=== PATIENT | female | born 1935 | race Caucasian/White ===

== ENCOUNTER → 2016-07-11 | Outpatient (CLI) | payer MEDICARE, OTHER ==
[~2016-07-11] MED LIST: ALLEGRA ALLERG180 MG PO; ALLEGRA180 MG PO; ASPIRIN EC325 MG PO; ATROVENT 0.03%30 ML BOTH NARES; Ascorbic Acid,Ester- PO; BENADRYL25 MG PO; BONIVA150 MG PO; BONIVA2.5 MG PO; CALCIUM 600 +1 EA15 PO; CALCIUM 600 +1 EAC1 PO; CALCIUM 600 +1 EACH PO; CATAPRES0.1 MG PO; CENTRUM SILV1 TABLE1 PO; CENTRUM SILVER1 EAC3 PO; COLACE100 MG PO; COUMADIN,JANTOVE1 MG PO; CRANBERRY300 MG PO; CYMBALTA20 MG PO; Claritin,Alavart PO; Colace PO; Coumadin dosing per PO; Cymbalta PO; DENAVIR1.5 GM PO; DENAVIR1.5 GM TP; Dulcolax PO; EFFEXOR XR150 MG PO; ESTROVEN 155 M155 MG PO; ESTROVEN MAX200 MCG PO; FENTANYL; FENTANYL1 EAC1 TD; FEVERFEW PO; Feosol PO; IBUPROFEN800 MG PO; IPRATROPIUM BRO15 ML NS; IRON325 M1 PO; Ipratropium Bromide NS; KENALOG,ARISTOC80 GM TP; Kenalog,Aristocort 0 TP; LYRICA150 MG PO; Levothroid,Synthroid PO; MOTRIN800 MG PO; MYCOSTATIN5 ML PO; NAPHAZOLINE; NEXIUM40 MG PO; NORCO 5/3251 TABLET PO; OPCON-A EYE DRO15 ML BOTH EYES; OXYCODONE HCL5 M1 PO; OXYIR5 MG PO; OXYTROL TRANSD3.9 MG TD; Oyst-Cal D, Oscal W/ PO; PHENIRAMINE; SENOKOT S,PE1 TABLET PO; SYNTHROID112 MCG PO; SYNTHROID125 MCG PO; SYNTHROID137 MCG PO; Synthroid PO; TETRACAINE; TETRACAINE IJ; TETRACAINE MC; THERAGRAN1 TABLET PO; TOFRANIL25 MG PO; TOFRANIL50 MG PO; TYLENOL REGULA325 MG PO; Tylenol Regular Stre PO; VITAMIN B 6 PO; Vicodin,Lortab 5/500 PO; ZOCOR40 MG PO; Zocor PO; [UNRECOGNIZED DRUG - OTHER]; [UNRECOGNIZED DRUG - OTHER] PO; fentaNYL Citrate IV; oxyCODONE PO
== END | disposition home or self-care (01) ==
LOC: CDC 15:43
DX: Z01.810 Encounter for preprocedural cardiovascular examination (principal)
CPT/HCPCS: 93000

== ENCOUNTER 2016-09-01 14:40 | Emergency (ER) | payer OTHER ==
[~2016-09-01] VITALS: Ht 152.4 cm; Wt 65.5 kg
[2016-09-01 16:02] LABS: EOSINOPHIL (%) 0.8 % (0-5); EOSINOPHIL COUNT 0.1 K/uL (0-0.3); HEMATOCRIT 31.6 % (36.0-46.0); IMMATURE GRANULOCYTE (%) 0.2 % (0.0-0.7); IMMATURE GRANULOCYTE COUNT 0.1 K/uL; LYMPHOCYTE COUNT 1.5 K/uL (1.0-2.8); MCH 31.4 PG (29.0-34.0); MCHC 33.2 G/DL (30.0-36.0); MCV 94.6 FL (83-99); MEAN PLAT.VOLUME 10.4 uM^3 (9.5-12.4); MONOCYTE (%) 11.8 % (3-12); MONOCYTE COUNT 0.8 K/uL (0-0.8); NEUTROPHIL (%) 63.7 % (45-76); PLATELET COUNT 208 K/uL (156-360); RBC DIS.WIDTH-CV 14.3 % (11.8-14.6); RBC DIS.WIDTH-SD 46.9 % (39-53); WHITE BLOOD COUNT 6.3 K/uL (4.1-10.2)
[2016-09-01 16:03] LABS: RED BLOOD COUNT 3.34 M/uL (3.80-5.20)
[2016-09-01 16:10] LABS: CHLORIDE 105 mEq/L (99-109); POTASSIUM 4.4 mEq/L (3.7-5.4); SODIUM 140 mEq/L (136-147)
[2016-09-01 16:12] LABS: GLUCOSE 103 mg/dL (70-99)
[2016-09-01 16:13] LABS: ANION GAP 7 MEQ/L (2-14)
[2016-09-01 16:14] LABS: TOTAL BILIRUBIN 0.4 mg/dL (0.0-1.0)
[2016-09-01 16:15] LABS: ALKALINE PHOSPHATASE 52 IU/L (3-129)
[2016-09-01 16:16] LABS: GFR ESTIMATE (CALCULATED) > 59 mL/min/
[2016-09-01 16:17] LABS: UREA NITROGEN (BUN) 18 mg/dL (9-23)
[2016-09-01 17:22] LABS: ADD MIUA? YES; BILIRUBIN NEGATIVE; BLOOD SMALL; COLOR AMBER ((YELLOW)); GLUCOSE (STRIP) NEGATIVE; KETONES 5; LEUKOCYTES TRACE; NITRITE NEGATIVE; PROTEIN (STRIP) NEGATIVE; SPECIFIC GRAVITY 1.017 (1.000-1.030)
[2016-09-01 17:34] LABS: BACTERIA RARE /HPF; CALCIUM OXALATE CRYSTALS 1+ /HPF; EPITHELIAL CELLS 1+ /HPF; HYALINE CASTS 30-40 /LPF; MUCUS 1+ /LPF; RED BLOOD CELLS TNTC /HPF (0-5); UNCLASSIFIED CRYSTALS 1+ /HPF
[2016-09-01 18:04] VITALS: BP 102/52
== END 2016-09-01 18:06 | disposition short-term general hospital (02) ==
LOC: EME 14:40
PROVIDERS: Emergency Medicine
DX: S72.001A Fracture of unspecified part of neck of right femur, initial encounter for closed fracture (principal); W18.30XA Fall on same level, unspecified, initial encounter; I10 Essential (primary) hypertension; K21.9 Gastro-esophageal reflux disease without esophagitis; M81.0 Age-related osteoporosis without current pathological fracture; Z87.891 Personal history of nicotine dependence
CPT/HCPCS: 73502; 73552; 80053; 81003; 85025; 86850; 86900; 86901; 99281; 99285; J2270; J2405

== ENCOUNTER 2016-11-16 18:39 | Inpatient (IN) | payer OTHER ==
[~2016-11-16] VITALS: Ht 152.4 cm; Wt 66.0 kg
[2016-11-16 20:15] LABS: EOSINOPHIL (%) 0.4 % (0-5); HEMATOCRIT 39.6 % (36.0-46.0); IMMATURE GRANULOCYTE (%) 0.5 % (0.0-0.7); INSTRUMENT ABS NEUTROPHIL CT 6.3 K/uL; LYMPHOCYTE COUNT 1.2 K/uL (1.0-2.8); MCH 31.1 PG (29.0-34.0); MCHC 32.3 G/DL (30.0-36.0); MCV 96.4 FL (83-99); MEAN PLAT.VOLUME 10.6 uM^3 (9.5-12.4); MONOCYTE (%) 8.8 % (3-12); MONOCYTE COUNT 0.7 K/uL (0-0.8); NEUTROPHIL (%) 76.1 % (45-76); NEUTROPHIL COUNT 6.3 K/uL (1.8-6.4); PLATELET COUNT 275 K/uL (156-360); RBC DIS.WIDTH-CV 13.2 % (11.8-14.6); RBC DIS.WIDTH-SD 47.1 % (39-53); RED BLOOD COUNT 4.11 M/uL (3.80-5.20); WHITE BLOOD COUNT 8.3 K/uL (4.1-10.2)
[2016-11-16 20:30] LABS: CHLORIDE 103 mEq/L (99-109); POTASSIUM 4.3 mEq/L (3.7-5.4); SODIUM 136 mEq/L (136-147)
[2016-11-16 20:32] LABS: GLUCOSE 112 mg/dL (70-99)
[2016-11-16 20:33] LABS: ANION GAP 7 MEQ/L (2-14)
[2016-11-16 20:34] LABS: TOTAL BILIRUBIN 0.2 mg/dL (0.0-1.0)
[2016-11-16 20:35] LABS: ALKALINE PHOSPHATASE 67 IU/L (3-129)
[2016-11-16 20:36] LABS: GFR ESTIMATE (CALCULATED) > 59 mL/min/
[2016-11-16 20:37] LABS: UREA NITROGEN (BUN) 20 mg/dL (9-23)
[2016-11-16 21:42] LABS: ADD MIUA? YES; BILIRUBIN NEGATIVE; BLOOD NEGATIVE; COLOR YELLOW ((YELLOW)); GLUCOSE (STRIP) NEGATIVE; KETONES NEGATIVE; LEUKOCYTES TRACE; NITRITE NEGATIVE; PROTEIN (STRIP) NEGATIVE; SPECIFIC GRAVITY 1.018 (1.000-1.030); UROBILINOGEN 0.2 MG/DL (0.2-1.0)
[2016-11-16 22:08] LABS: BACTERIA NONE SEEN /HPF; CALCIUM OXALATE CRYSTALS 1+ /HPF; EPITHELIAL CELLS RARE /HPF; MUCUS TRACE /LPF; RED BLOOD CELLS 0-5 /HPF (0-5); UCUL ADDED? NO
[2016-11-16] MEDS ORDERED: TRAMADOL HCL50 MG PO (23:29)
[2016-11-16] MEDS ORDERED: IBUPROFEN800 MG PO (23:29)
[2016-11-17 00:33] VITALS: BP 161/80
[2016-11-17 03:41] VITALS: BP 155/76
[2016-11-17 07:00] LABS: HEMATOCRIT 35.9 % (36.0-46.0); MCHC 31.5 G/DL (30.0-36.0); MCV 98.4 FL (83-99); MEAN PLAT.VOLUME 10.9 uM^3 (9.5-12.4); PLATELET COUNT 241 K/uL (156-360); RBC DIS.WIDTH-CV 13.2 % (11.8-14.6); RBC DIS.WIDTH-SD 47.6 % (39-53); RED BLOOD COUNT 3.65 M/uL (3.80-5.20); WHITE BLOOD COUNT 6.7 K/uL (4.1-10.2)
[2016-11-17 07:24] LABS: ANION GAP 7 MEQ/L (2-14); CHLORIDE 110 MEQ/L (99-109); GFR ESTIMATE (CALCULATED) > 59 mL/min/; GLUCOSE 106 mg/dL (70-99); POTASSIUM 3.8 MEQ/L (3.7-5.4); SAMPLE HEMOLYSIS CHECK 0; SAMPLE ICTERIC CHECK 0; SAMPLE LIPEMIA CHECK 0; SODIUM 142 MEQ/L (136-147); UREA NITROGEN (BUN) 15 mg/dL (9-23)
[2016-11-17 07:43] VITALS: BP 120/57
[2016-11-17 11:53] VITALS: BP 110/62
[2016-11-17 16:00] VITALS: BP 116/55
[2016-11-17 20:19] VITALS: BP 115/56
[2016-11-18 00:17] VITALS: BP 108/53
[2016-11-18 04:26] VITALS: BP 140/63
[2016-11-18 04:49] LABS: HEMATOCRIT 34.8 % (36.0-46.0); MCHC 31.6 G/DL (30.0-36.0); MEAN PLAT.VOLUME 10.9 uM^3 (9.5-12.4); PLATELET COUNT 229 K/uL (156-360); RBC DIS.WIDTH-CV 13.2 % (11.8-14.6); RBC DIS.WIDTH-SD 47.7 % (39-53); RED BLOOD COUNT 3.55 M/uL (3.80-5.20); WHITE BLOOD COUNT 5.3 K/uL (4.1-10.2)
[2016-11-18 07:50] VITALS: BP 125/58
[2016-11-18 16:01] VITALS: BP 131/62
[2016-11-18 23:14] VITALS: BP 126/60
[2016-11-19 07:10] VITALS: BP 168/72
[2016-11-19] MEDS ORDERED: CALCIUM 600 +1 EA16 PO (11:48)
[2016-11-19] MEDS ORDERED: FLONASE16 G1 BOTH NARES (11:50)
[2016-11-19] MEDS ORDERED: CRANBERRY 12,61 EACH PO (11:55)
[2016-11-19 15:39] VITALS: BP 117/58
[2016-11-19 21:32] VITALS: BP 169/74
[2016-11-19 22:49] LABS: GFR ESTIMATE (CALCULATED) > 59 mL/min/
[2016-11-19 23:52] LABS: VANCOMYCIN, TROUGH 7.6 MCG/ML (10-20)
[2016-11-20 00:52] VITALS: BP 126/60
[2016-11-20 08:01] VITALS: BP 158/71
[2016-11-20] MEDS ORDERED: BACTRIM,SEPT1 TABLET PO (08:25)
[2016-11-20] MEDS ORDERED: AUGMENTIN875 MG PO (08:25)
== END 2016-11-20 13:46 | disposition home health service (06) | DRG 602 ==
LOC: EME 18:39 → EDOF 23:33 → 2EAST 23:33
PROVIDERS: Internal Medicine; Physician Assistant
DX: L03.317 Cellulitis of buttock (principal); L89.314 Pressure ulcer of right buttock, stage 4; S70.321A Blister (nonthermal), right thigh, initial encounter; N31.9 Neuromuscular dysfunction of bladder, unspecified; G89.4 Chronic pain syndrome; G62.9 Polyneuropathy, unspecified; K86.1 Other chronic pancreatitis; M81.0 Age-related osteoporosis without current pathological fracture; B99.9 Unspecified infectious disease; E03.9 Hypothyroidism, unspecified; E78.5 Hyperlipidemia, unspecified; G89.29 Other chronic pain; I10 Essential (primary) hypertension; K59.00 Constipation, unspecified; Z87.891 Personal history of nicotine dependence; Z99.3 Dependence on wheelchair; Z98.1 Arthrodesis status
CPT/HCPCS: 72170; 72192; 80048; 80053; 80202; 81003; 82565; 83605; 84443; 85025; 85027; 87040; 87070; 87075; 87205; 97530 GP; 99281; 99285; J1644; J1885; J2543; J3370; J7030; J7050

== ENCOUNTER 2016-11-23 19:55 | Inpatient (IN) | payer OTHER ==
[~2016-11-23] VITALS: Ht 152.4 cm; Wt 66.5 kg
[~2016-11-23 19:55] MED LIST changes: +AUGMENTIN875 MG PO; +BACTRIM,SEPT1 TABLET PO; +CALCIUM 600 +1 EA16 PO; +CRANBERRY 12,61 EACH PO; +FLONASE16 G1 BOTH NARES; +TRAMADOL HCL50 MG PO
[2016-11-23 21:11] LABS: EOSINOPHIL (%) 0.1 % (0-5); HEMATOCRIT 38.3 % (36.0-46.0); IMMATURE GRANULOCYTE (%) 0.4 % (0.0-0.7); IMMATURE GRANULOCYTE COUNT 0.1 K/uL; INSTRUMENT ABS NEUTROPHIL CT 9.5 K/uL; LYMPHOCYTE COUNT 0.9 K/uL (1.0-2.8); MCHC 32.9 G/DL (30.0-36.0); MCV 94.1 FL (83-99); MONOCYTE (%) 7.7 % (3-12); MONOCYTE COUNT 0.9 K/uL (0-0.8); NEUTROPHIL (%) 83.6 % (45-76); NEUTROPHIL COUNT 9.5 K/uL (1.8-6.4); RBC DIS.WIDTH-CV 13.5 % (11.8-14.6); RBC DIS.WIDTH-SD 46.4 % (39-53); RED BLOOD COUNT 4.07 M/uL (3.80-5.20)
[2016-11-23 21:12] LABS: PLATELET COUNT 379 K/uL (156-360); WHITE BLOOD COUNT 11.3 K/uL (4.1-10.2)
[2016-11-23 21:21] LABS: ADD MIUA? YES; BILIRUBIN NEGATIVE; BLOOD NEGATIVE; COLOR YELLOW ((YELLOW)); GLUCOSE (STRIP) NEGATIVE; KETONES 5; LEUKOCYTES TRACE; NITRITE NEGATIVE; PROTEIN (STRIP) NEGATIVE; UROBILINOGEN 0.2 MG/DL (0.2-1.0)
[2016-11-23 21:23] LABS: CHLORIDE 104 mEq/L (99-109); POTASSIUM 4.4 mEq/L (3.7-5.4); SODIUM 136 mEq/L (136-147)
[2016-11-23 21:25] LABS: GLUCOSE 118 mg/dL (70-99)
[2016-11-23 21:26] LABS: ANION GAP 9 MEQ/L (2-14)
[2016-11-23 21:27] LABS: TOTAL BILIRUBIN 0.2 mg/dL (0.0-1.0)
[2016-11-23 21:29] LABS: ALKALINE PHOSPHATASE 67 IU/L (3-129); GFR ESTIMATE (CALCULATED) > 59 mL/min/
[2016-11-23 21:30] LABS: UREA NITROGEN (BUN) 18 mg/dL (9-23)
[2016-11-23 21:31] LABS: TROP-I INTERPRETATION NEGATIVE; TROPONIN-I < 0.01 ng/mL (0.0-0.30)
[2016-11-23 21:32] LABS: BACTERIA NONE SEEN /HPF; EPITHELIAL CELLS RARE /HPF; GRANULAR CASTS 0-5 /LPF; MUCUS TRACE /LPF; RED BLOOD CELLS 0-5 /HPF (0-5); UCUL ADDED? NO; WHITE BLOOD CELLS 0-5 /HPF (0-5)
[2016-11-23] MEDS ORDERED: AMOX TR-K CLV1 EAC4 PO (23:14)
[2016-11-23] MEDS ORDERED: BACTRIM,SEPT1 TABLET PO (23:15)
[2016-11-23] MEDS ORDERED: TOFRANIL25 MG PO (23:18)
[2016-11-23] MEDS ORDERED: SSD25GM TP (23:24)
[2016-11-24] VITALS (7 sets, daily range): BP systolic 100–154; BP diastolic 52–92
[2016-11-24 01:09] LABS: INFLUENZA A VIRAL ANTIGEN NEGATIVE; INFLUENZA B VIRAL ANTIGEN NEGATIVE
[2016-11-25 05:30] VITALS: BP 129/59
[2016-11-25 07:30] VITALS: BP 127/58
[2016-11-25 07:39] LABS: EOSINOPHIL (%) 1.9 % (0-5); EOSINOPHIL COUNT 0.1 K/uL (0-0.3); HEMATOCRIT 34.3 % (36.0-46.0); IMMATURE GRANULOCYTE (%) 0.5 % (0.0-0.7); INSTRUMENT ABS NEUTROPHIL CT 5.1 K/uL; LYMPHOCYTE COUNT 1.5 K/uL (1.0-2.8); MCH 31.1 PG (29.0-34.0); MCHC 32.4 G/DL (30.0-36.0); MCV 96.1 FL (83-99); MEAN PLAT.VOLUME 9.9 uM^3 (9.5-12.4); MONOCYTE (%) 9.5 % (3-12); MONOCYTE COUNT 0.7 K/uL (0-0.8); NEUTROPHIL (%) 68.1 % (45-76); NEUTROPHIL COUNT 5.1 K/uL (1.8-6.4); PLATELET COUNT 357 K/uL (156-360); RBC DIS.WIDTH-CV 13.3 % (11.8-14.6); RBC DIS.WIDTH-SD 47.8 % (39-53); RED BLOOD COUNT 3.57 M/uL (3.80-5.20)
[2016-11-25 07:46] LABS: WHITE BLOOD COUNT 7.6 K/uL (4.1-10.2)
[2016-11-25 08:11] LABS: ANION GAP 9 MEQ/L (2-14); CHLORIDE 105 MEQ/L (99-109); GFR ESTIMATE (CALCULATED) > 59 mL/min/; POTASSIUM 4.1 MEQ/L (3.7-5.4); SAMPLE HEMOLYSIS CHECK 0; SAMPLE ICTERIC CHECK 0; SAMPLE LIPEMIA CHECK 0; SODIUM 139 MEQ/L (136-147); UREA NITROGEN (BUN) 15 mg/dL (9-23)
[2016-11-25 08:38] LABS: GLUCOSE 86 mg/dL (70-99)
[2016-11-25 11:17] VITALS: BP 136/64
[2016-11-25 23:47] VITALS: BP 142/63
[2016-11-26 08:00] VITALS: BP 165/70
[2016-11-26 11:26] VITALS: BP 132/61
[2016-11-26 15:42] VITALS: BP 127/60
[2016-11-27] VITALS: BP 130/60
[2016-11-27 07:49] VITALS: BP 149/68
[2016-11-27 23:55] VITALS: BP 147/66
[2016-11-28 07:54] VITALS: BP 144/64
[2016-11-28 10:25] LABS: HEMATOCRIT 38.3 % (36.0-46.0); MCH 31.2 PG (29.0-34.0); MCHC 32.4 G/DL (30.0-36.0); MCV 96.5 FL (83-99); PLATELET COUNT 432 K/uL (156-360); RBC DIS.WIDTH-CV 13.3 % (11.8-14.6); RBC DIS.WIDTH-SD 47.6 % (39-53); RED BLOOD COUNT 3.97 M/uL (3.80-5.20); WHITE BLOOD COUNT 6.9 K/uL (4.1-10.2)
[2016-11-28 10:54] LABS: ANION GAP 12 MEQ/L (2-14); CHLORIDE 108 MEQ/L (99-109); GFR ESTIMATE (CALCULATED) > 59 mL/min/; GLUCOSE 144 mg/dL (70-99); POTASSIUM 3.6 MEQ/L (3.7-5.4); SAMPLE HEMOLYSIS CHECK 0; SAMPLE ICTERIC CHECK 0; SAMPLE LIPEMIA CHECK 0; SODIUM 144 MEQ/L (136-147); UREA NITROGEN (BUN) 17 mg/dL (9-23)
[2016-11-28 15:25] VITALS: BP 138/64
[2016-11-28 18:08] LABS: ADD MIUA? NO; BILIRUBIN NEGATIVE; BLOOD NEGATIVE; COLOR STRAW ((YELLOW)); GLUCOSE (STRIP) NEGATIVE; KETONES NEGATIVE; LEUKOCYTES NEGATIVE; NITRITE NEGATIVE; PROTEIN (STRIP) NEGATIVE; SPECIFIC GRAVITY 1.006 (1.000-1.030); UCUL ADDED? NO; UROBILINOGEN 0.2 MG/DL (0.2-1.0)
[2016-11-28 23:59] VITALS: BP 131/58
[2016-11-29 08:52] VITALS: BP 133/79
[2016-11-29 08:53] LABS: HEMATOCRIT 38.5 % (36.0-46.0); MCH 31.4 PG (29.0-34.0); MCHC 32.5 G/DL (30.0-36.0); MCV 96.7 FL (83-99); MEAN PLAT.VOLUME 9.8 uM^3 (9.5-12.4); NRBC (%) 0.3 /100 WBC (0-0); PLATELET COUNT 437 K/uL (156-360); RBC DIS.WIDTH-CV 13.4 % (11.8-14.6); RBC DIS.WIDTH-SD 47.8 % (39-53); RED BLOOD COUNT 3.98 M/uL (3.80-5.20); WHITE BLOOD COUNT 7.6 K/uL (4.1-10.2)
[2016-11-29 09:18] LABS: ANION GAP 10 MEQ/L (2-14); CHLORIDE 106 MEQ/L (99-109); GFR ESTIMATE (CALCULATED) > 59 mL/min/; GLUCOSE 124 mg/dL (70-99); SAMPLE HEMOLYSIS CHECK 0; SAMPLE ICTERIC CHECK 0; SAMPLE LIPEMIA CHECK 0; SODIUM 142 MEQ/L (136-147); UREA NITROGEN (BUN) 20 mg/dL (9-23)
[2016-11-29 20:00] VITALS: BP 132/63
[2016-11-30] VITALS: BP 127/60
[2016-11-30 07:20] VITALS: BP 140/60
[2016-11-30] MEDS ORDERED: TRAMADOL HCL50 MG PO (13:50)
[2016-11-30] MEDS ORDERED: CIPROFLOXACIN250 MG PO (13:50)
[2016-11-30] MEDS ORDERED: SANTYL30 GM TP (14:00)
== END 2016-11-30 15:50 | disposition home health service (06) | DRG 570 ==
LOC: EME → EDBD 19:55 → EME 19:55 → EDOF 23:53 → 3EAST 23:53
PROVIDERS: Emergency Medicine; Hospitalist; Physician Assistant
DX: L89.314 Pressure ulcer of right buttock, stage 4 (principal); L02.31 Cutaneous abscess of buttock; L03.317 Cellulitis of buttock; R41.0 Disorientation, unspecified; N31.9 Neuromuscular dysfunction of bladder, unspecified; G62.9 Polyneuropathy, unspecified; R35.0 Frequency of micturition; E78.5 Hyperlipidemia, unspecified; G89.4 Chronic pain syndrome; E03.9 Hypothyroidism, unspecified; R26.2 Difficulty in walking, not elsewhere classified; J30.2 Other seasonal allergic rhinitis; I27.2 Other secondary pulmonary hypertension; I35.0 Nonrheumatic aortic (valve) stenosis; H61.22 Impacted cerumen, left ear; Z74.01 Bed confinement status; Z99.3 Dependence on wheelchair; Z88.5 Allergy status to narcotic agent; Z87.891 Personal history of nicotine dependence; Z98.1 Arthrodesis status
CPT/HCPCS: 70450; 71010; 80048; 80053; 80202; 81003; 83605; 84484; 85025; 85027; 87040; 87070; 87075; 87205; 87502; 93306; 94799; 99202; 99281; 99285; C1755; J1644; J1885; J2543; J3010; J3370; J7030; J7050